=== PATIENT | male | born 1985 | race Caucasian/White ===

== ENCOUNTER → 2020-04-22 | Emergency (ER) | payer OTHER ==
[~2020-04-22] MED LIST: GASTROGRAFIN SOLUTION 30ML (Q9963) As Ordered ONE; GASTROGRAFIN SOLUTION 30ML (Q9963) ONE; HALOPERIDOL 5MG/ML VIAL (J1630 PER 1) As Ordered ONE; HALOPERIDOL 5MG/ML VIAL (J1630 PER 1) ONE; ISOVUE-370 76% 100ML VIAL As Ordered ONE; MORPHINE 4 MG/ML 1ML VIAL/SYRINGE (J2270) As Ordered ONE; MORPHINE 4 MG/ML 1ML VIAL/SYRINGE (J2270) ONE; ONDANSETRON 4MG/2ML VIAL As Ordered ONE; ONDANSETRON 4MG/2ML VIAL ONE
[2020-05-24 11:15] LABS: PROTHROMBIN TIME 13.4 SECONDS (11.8-14.0)
[2020-05-24 15:37] LABS: BASO % 0.2 % (0.0-1.0); EOS # 0.2 10^3/uL (0.0-0.5); EOS % 3.2 % (0.0-3.0); HEMATOCRIT 39.1 % (42.0-52.0); HEMOGLOBIN 12.7 g/dl (13.5-17.5); LYMPH # 1.8 10^3/uL (1.5-5.0); LYMPH % 30.9 % (24.0-44.0); MEAN CORPUSCULAR HEMOGLOBIN 28.4 pg (27.0-33.0); MEAN CORPUSCULAR HGB CONC 32.5 g/dl (32.0-36.5); MEAN CORPUSCULAR VOLUME 87.5 fl (80.0-96.0); MONO # 0.4 10^3/uL (0.0-0.8); MONO % 7.6 % (0.0-5.0); NEUTROPHILS # 3.3 10^3/uL (1.5-8.5); NEUTROPHILS % 57.6 % (36.0-66.0); PLATELET COUNT, AUTOMATED 234 10^3/uL (150-450); RED BLOOD COUNT 4.47 10^6/uL (4.30-6.10); WHITE BLOOD COUNT 5.7 10^3/uL (4.0-10.0)
[2020-06-06 11:09] LABS: ALBUMIN 2.8 GM/DL (3.2-5.2); ALT/SGPT 25 U/L (12-78); BILIRUBIN,DIRECT < 0.1 MG/DL (0.0-0.2); BILIRUBIN,TOTAL 0.3 MG/DL (0.2-1.0); BLOOD UREA NITROGEN 7 MG/DL (7-18); CALCIUM LEVEL 8.5 MG/DL (8.5-10.1); CARBON DIOXIDE LEVEL 24 MEQ/L (21-32); CHLORIDE LEVEL 113 MEQ/L (98-107); CREATININE FOR GFR 0.86 MG/DL (0.70-1.30); GLOMERULAR FILTRATION RATE > 60.0 (>60); GLUCOSE, FASTING 79 MG/DL (70-100); MAGNESIUM LEVEL 2.1 MG/DL (1.8-2.4); POTASSIUM SERUM 3.6 MEQ/L (3.5-5.1); SODIUM LEVEL 143 MEQ/L (136-145); TOTAL PROTEIN 6.4 GM/DL (6.4-8.2)
[2020-07-02 07:25] LABS: HCG, SERUM QUALITATIVE NEGATIVE
== END | disposition home or self-care (01) ==
LOC: M ED 17:00
DX: R10.32 Left lower quadrant pain (principal); K44.9 Diaphragmatic hernia without obstruction or gangrene; K21.9 Gastro-esophageal reflux disease without esophagitis; R53.82 Chronic fatigue, unspecified; Z88.0 Allergy status to penicillin; Z88.1 Allergy status to other antibiotic agents; Z88.5 Allergy status to narcotic agent; Z79.899 Other long term (current) drug therapy
CPT/HCPCS: 74177; 80048; 80076; 83605; 83735; 84703; 85025; 85610; 85730; 86850; 86900; 86901; 87040; 96361; 96374; 96375; 99283; J1630; J2270; J2405; Q9963; Q9967

== ENCOUNTER → 2023-10-17 | Outpatient (REF) ==
[2023-10-17 12:28] LABS: ESTRADIOL 2534.8 PG/ML (<39.8)
[2023-10-17 12:48] LABS: PROGESTERONE 87.77 NG/ML (0.28-1.22)
== END ==
LOC: M LAB LCGH 11:45
DX: Z00.00 Encounter for general adult medical examination without abnormal findings (principal)

== ENCOUNTER 2024-05-18 16:28 | Inpatient (IN) | payer OTHER ==
[~2024-05-18] VITALS: Ht 162.6 cm; Wt 90.0 kg
[2024-05-18] VITALS (11 sets, daily range): BP systolic 107–139; BP diastolic 53–74
[2024-05-18 16:56] LABS: HEMATOCRIT 29.4 % (36.0-47.0); HEMOGLOBIN 8.9 g/dl (12.0-15.5); MEAN CORPUSCULAR HEMOGLOBIN 21.8 pg (27.0-33.0); MEAN CORPUSCULAR HGB CONC 30.3 g/dl (32.0-36.5); MEAN CORPUSCULAR VOLUME 72.1 fl (80.0-96.0); PLATELET COUNT, AUTOMATED 311 10^3/uL (150-450); RED BLOOD COUNT 4.08 10^6/uL (4.00-5.40); WHITE BLOOD COUNT 10.2 10^3/uL (4.0-10.0)
[2024-05-18] MEDS ORDERED: PEDI18TA PO (16:56)
[2024-05-18] MEDS ORDERED: FAMO20TA PO (16:56)
[2024-05-18] MEDS ORDERED: PANT20TA6 PO (16:56)
[2024-05-18] MEDS ORDERED: ADDE25CA PO (16:56)
[2024-05-18] MEDS ORDERED: ADDE20CA3 PO (16:56)
[2024-05-18] MEDS ORDERED: HOME MED LIST COMPLETE! XX SCH (17:00)
[2024-05-18] MEDS: BETAMETHASONE SOLUSPAN 6MG/ML 5ML VIAL IM SCH (17:07)
[2024-05-18] MEDS: PANTOPRAZOLE 40MG TAB (PROTONIX) PO SCH (21:00)
[2024-05-18] MEDS: MAG Sulf (L&D) 4 GM/100 ML 4 GM in IV 1 EA IV ONE (22:50)
[2024-05-18] MEDS: MAG Sulf (OBGYN) 20GM/500ML 20,000 MG in IV 1 EA IV SCH (23:26)
[2024-05-18 23:51] LABS: INR 1.05; PARTIAL THROMBOPLASTIN TIME 22.9 SECONDS (24.8-34.2); PROTHROMBIN TIME 13.4 SECONDS (12.5-14.5)
[2024-05-19] VITALS (59 sets, daily range): BP systolic 79–134; BP diastolic 41–75; TEMP 96.7–97.8; O2SAT 97–100
[2024-05-19] MEDS: MORPHINE 4 MG/ML 1ML VIAL IV ONE (00:08)
[2024-05-19] MEDS: PROMETHAZINE 25MG/ML 1ML VIAL IV ONE (00:09)
[2024-05-19] MEDS: LR 1,000 ML IV SCH (01:16)
[2024-05-19 06:38] LABS: BASO % 0.1 % (0.0-1.0); HEMATOCRIT 26.3 % (36.0-47.0); HEMOGLOBIN 7.8 g/dl (12.0-15.5); LYMPH # 1.1 10^3/uL (1.5-5.0); LYMPH % 9.2 % (24.0-44.0); MEAN CORPUSCULAR HEMOGLOBIN 21.4 pg (27.0-33.0); MEAN CORPUSCULAR HGB CONC 29.7 g/dl (32.0-36.5); MEAN CORPUSCULAR VOLUME 72.3 fl (80.0-96.0); MONO # 0.5 10^3/uL (0.0-0.8); NEUTROPHILS # 9.9 10^3/uL (1.5-8.5); NEUTROPHILS % 85.3 % (36.0-66.0); PLATELET COUNT, AUTOMATED 288 10^3/uL (150-450); RED BLOOD COUNT 3.64 10^6/uL (4.00-5.40); WHITE BLOOD COUNT 11.6 10^3/uL (4.0-10.0)
[2024-05-19] MEDS: FAMOTIDINE 20 MG TAB PO SCH (08:53)
[2024-05-19] MEDS ORDERED: ONDANSETRON 4MG 2ML VIAL IV PRN (09:40)
[2024-05-19] MEDS: MORPHINE 10 MG/ML 1ML VIAL SC ONE (17:01)
[2024-05-20] VITALS (37 sets, daily range): BP systolic 92–130; BP diastolic 50–63
[2024-05-20 00:43] LABS: HEMOGLOBIN 8.2 g/dl (12.0-15.5); MEAN CORPUSCULAR HEMOGLOBIN 22.6 pg (27.0-33.0); MEAN CORPUSCULAR HGB CONC 30.4 g/dl (32.0-36.5); MEAN CORPUSCULAR VOLUME 74.4 fl (80.0-96.0); PLATELET COUNT, AUTOMATED 242 10^3/uL (150-450); RED BLOOD COUNT 3.63 10^6/uL (4.00-5.40); WHITE BLOOD COUNT 11.2 10^3/uL (4.0-10.0)
[2024-05-20 06:42] LABS: HEMATOCRIT 26.7 % (36.0-47.0); HEMOGLOBIN 8.3 g/dl (12.0-15.5); MEAN CORPUSCULAR HEMOGLOBIN 23.3 pg (27.0-33.0); MEAN CORPUSCULAR HGB CONC 31.1 g/dl (32.0-36.5); PLATELET COUNT, AUTOMATED 252 10^3/uL (150-450); RED BLOOD COUNT 3.56 10^6/uL (4.00-5.40)
[2024-05-20] MEDS: FUROSEMIDE 20MG/2ML VIAL IV ONE ×2 (08:25→15:20)
[2024-05-21] VITALS (8 sets, daily range): BP systolic 107–125; BP diastolic 55–68
[2024-05-21 10:45] LABS: HEMATOCRIT 28.1 % (36.0-47.0); HEMOGLOBIN 8.6 g/dl (12.0-15.5); MEAN CORPUSCULAR HEMOGLOBIN 23.2 pg (27.0-33.0); MEAN CORPUSCULAR HGB CONC 30.6 g/dl (32.0-36.5); MEAN CORPUSCULAR VOLUME 75.7 fl (80.0-96.0); PLATELET COUNT, AUTOMATED 245 10^3/uL (150-450); RED BLOOD COUNT 3.71 10^6/uL (4.00-5.40); WHITE BLOOD COUNT 9.9 10^3/uL (4.0-10.0)
[2024-05-21] MEDS: ACETAMINOPHEN 500 MG TAB PO ONE (13:57)
[2024-05-22 00:04] VITALS: BP 119/58
[2024-05-22 06:06] VITALS: BP 116/61
[2024-05-22 09:01] LABS: BASO % 0.4 % (0.0-1.0); EOS # 0.2 10^3/uL (0.0-0.5); HEMATOCRIT 33.9 % (36.0-47.0); HEMOGLOBIN 9.5 g/dl (12.0-15.5); LYMPH # 1.2 10^3/uL (1.5-5.0); LYMPH % 13.9 % (24.0-44.0); MEAN CORPUSCULAR HEMOGLOBIN 22.9 pg (27.0-33.0); MEAN CORPUSCULAR VOLUME 81.9 fl (80.0-96.0); MONO # 0.6 10^3/uL (0.0-0.8); MONO % 6.8 % (2.0-8.0); NEUTROPHILS # 6.2 10^3/uL (1.5-8.5); PLATELET COUNT, AUTOMATED 221 10^3/uL (150-450); RED BLOOD COUNT 4.14 10^6/uL (4.00-5.40); WHITE BLOOD COUNT 8.5 10^3/uL (4.0-10.0)
[2024-05-22] MEDS: ANUSOL HC CREAM 30GM TOP PRN (15:59)
[2024-05-22 16:00] VITALS: BP 124/70; O2SAT 96
[2024-05-22 18:00] VITALS: BP 130/71; O2SAT 98
[2024-05-22 22:00] VITALS: BP 114/57; O2SAT 95
[2024-05-23 02:00] VITALS: BP 110/59; O2SAT 95
[2024-05-23 06:00] VITALS: BP 102/54; O2SAT 97
[2024-05-23 11:04] VITALS: BP 123/67; O2SAT 96
[2024-05-23 14:00] VITALS: BP 138/68; O2SAT 97
[2024-05-23 18:21] VITALS: BP 119/66
[2024-05-24 02:33] VITALS: BP 128/61
[2024-05-24 10:05] VITALS: BP 121/66
[2024-05-24 18:00] VITALS: BP 133/66; O2SAT 98
[2024-05-25 02:00] VITALS: BP 119/61; O2SAT 98
[2024-05-25 15:00] VITALS: BP 132/74; O2SAT 98
[2024-05-25 22:45] VITALS: BP 112/58; O2SAT 96
[2024-05-26 06:08] VITALS: BP 110/62; O2SAT 98
[2024-05-26 14:29] VITALS: BP 125/73; O2SAT 98
[2024-05-26 18:00] VITALS: BP 118/71; O2SAT 98
[2024-05-27] VITALS: BP 116/67; O2SAT 96
[2024-05-27 06:00] VITALS: BP 120/63; O2SAT 96
[2024-05-27 14:00] VITALS: BP 118/76; O2SAT 97
[2024-05-27 22:27] VITALS: BP 120/76; O2SAT 99
[2024-05-28 05:55] VITALS: BP 108/60; O2SAT 98
[2024-05-28 14:00] VITALS: BP 113/67; O2SAT 97
[2024-05-28 22:00] VITALS: BP 108/56; O2SAT 98
[2024-05-29 06:25] VITALS: BP 107/65; O2SAT 97
[2024-05-29 18:00] VITALS: BP 119/70; O2SAT 98
[2024-05-30 02:41] VITALS: BP 119/55; O2SAT 98
[2024-05-30 10:15] VITALS: BP 105/53; O2SAT 97
[2024-05-30] MEDS: PANTOPRAZOLE 40MG TAB (PROTONIX) PO SCH (19:30)
[2024-05-31 02:00] VITALS: BP 106/55; O2SAT 99
[2024-05-31 10:00] VITALS: BP 121/66; O2SAT 97
[2024-05-31] MEDS: AMPHETAMINE/DEXTROAMPHETAMINE 5 MG *ER* CAPSULE (ADDERALL XR) PO SCH (10:23)
[2024-05-31 18:00] VITALS: BP 99/65; O2SAT 98
[2024-06-01 02:00] VITALS: BP 101/59; O2SAT 98
[2024-06-01 08:58] VITALS: BP 101/59; TEMP 97.1; O2SAT 98
[2024-06-01 10:00] VITALS: BP 114/59; O2SAT 100
[2024-06-01 18:00] VITALS: BP 115/58; O2SAT 99
[2024-06-02 02:00] VITALS: BP 103/55; O2SAT 100
[2024-06-02 18:00] VITALS: BP 110/56; O2SAT 98
[2024-06-03 02:00] VITALS: BP 92/54; O2SAT 98
[2024-06-03 10:17] LABS: HEMATOCRIT 32.2 % (36.0-47.0); HEMOGLOBIN 9.9 g/dl (12.0-15.5); MEAN CORPUSCULAR HEMOGLOBIN 22.9 pg (27.0-33.0); MEAN CORPUSCULAR HGB CONC 30.7 g/dl (32.0-36.5); MEAN CORPUSCULAR VOLUME 74.5 fl (80.0-96.0); PLATELET COUNT, AUTOMATED 349 10^3/uL (150-450); RED BLOOD COUNT 4.32 10^6/uL (4.00-5.40); WHITE BLOOD COUNT 9.6 10^3/uL (4.0-10.0)
[2024-06-03 10:35] VITALS: BP 117/63; O2SAT 100
[2024-06-03 13:58] VITALS: BP 114/75; O2SAT 98
[2024-06-03 18:00] VITALS: BP 130/68; O2SAT 96
[2024-06-03 22:00] VITALS: BP 109/59; O2SAT 97
[2024-06-03] MEDS: LACTATED RINGER'S 1000 ML IV ONE (23:28)
[2024-06-04] VITALS (10 sets, daily range): BP systolic 101–123; BP diastolic 53–67; TEMP 96.6; O2SAT 95–100
[2024-06-04] MEDS ORDERED: METHYLERGONOVINE MALEATE 0.2MG/ML 1ML VIAL IM PRN (04:25)
[2024-06-04] MEDS ORDERED: OXYTOCIN INJ 10UNITS/ML 1ML VIAL IM PRN (04:25)
[2024-06-04] MEDS ORDERED: TRANEXAMIC ACID INJection 1,000 MG in NS 100 ML IV PRN (04:25)
[2024-06-04] MEDS ORDERED: OXYTOCIN DRIP 30 UNITS in IV 1 EA IV PRN (04:25)
[2024-06-04] MEDS ORDERED: CARBOPROST TROMETHAMINE 250 MCG/ML AMP IM PRN (04:25)
[2024-06-04] MEDS: LACTATED RINGER'S 1000 ML IV STA (05:58)
[2024-06-04] MEDS: ceFAZolin SOD 2 GM in IV 1 EA IV ONE (07:36)
[2024-06-04] MEDS: BICITRA 30ML SOLN UDC PO ONE (07:36)
[2024-06-04] MEDS: LR 1,000 ML IV SCH (07:36)
[2024-06-04] MEDS ORDERED: GENTAMICIN 400 MG in IV FLUID PLACE HOLDER 1 EA IV ONE (08:05)
[2024-06-04] MEDS: CLINDAMYCIN 900 MG in IV 1 EA IV ONE (09:19)
[2024-06-04] MEDS: GENTAMICIN 400 MG in D5W 50 ML IV ONE (09:44)
[2024-06-04] MEDS ORDERED: OXYTOCIN 30UNITS IN 0.9% NaCl 500ML IV BAG As Ordered ONE (10:06)
[2024-06-04] MEDS ORDERED: TRANEXAMIC ACID 100 MG/ML 10ML VIAL As Ordered ONE (10:06)
[2024-06-04] MEDS ORDERED: MORPHINE PRES-FREE INJ 10 MG/10 ML VIAL As Ordered ONE (10:06)
[2024-06-04] MEDS ORDERED: ONDANSETRON 4MG 2ML VIAL As Ordered ONE (10:06)
[2024-06-04] MEDS ORDERED: KETOROLAC 60MG 2ML VIAL As Ordered ONE (10:06)
[2024-06-04] MEDS ORDERED: ACETAMINOPHEN 1000MG 100ML IV BAG As Ordered ONE (10:06)
[2024-06-04] MEDS ORDERED: ePHEDrine SULFATE 25 MG/5 ML(5MG/ML) SYRINGE As Ordered ONE (10:31)
[2024-06-04] MEDS ORDERED: PHENYLephrine 500MCG 5ML (100MCG/ML) SYRINGE As Ordered ONE (10:31)
[2024-06-04] MEDS ORDERED: fentaNYL 100 MCG/2 ML INJECTION As Ordered ONE (10:43)
[2024-06-04 10:44] LABS: CORD GAS ABE V 0.3; CORD GAS HCO3 V 26.8 MMOL/L; CORD GAS O2 SAT V 18.1 %; CORD GAS PCO2 V 50.6 mmHg; CORD GAS PH V 7.342 UNITS; CORD GAS PO2 V 11.1 mmHg; CORD GAS SBC V 22.8 MMOL/L; CORD GAS TCO2 V 28.4 MMOL/L
[2024-06-04 10:46] LABS: CORD GAS ABE A -2.9; CORD GAS HCO3 A 21.7 MMOL/L; CORD GAS PCO2 A 37.2 mmHg; CORD GAS PH A 7.383 UNITS; CORD GAS SBC A 21.7 MMOL/L; CORD GAS TCO2 A 22.8 MMOL/L
[2024-06-04] MEDS ORDERED: RHO(D) IMMUNE GLOBULIN/MALTOSE 500MCG(2500IU)/2.2ML VIAL (WINRHO) IM SCH (11:15)
[2024-06-04] MEDS ORDERED: MOM 30ML SUSPENSION UDC PO PRN (11:15)
[2024-06-04] MEDS ORDERED: CALCIUM CARBONATE 500 MG CHEW U/D PO PRN (11:15)
[2024-06-04] MEDS: OXYTOCIN DRIP 30 UNITS in IV 1 EA IV SCH (11:54)
[2024-06-04] MEDS ORDERED: **NOTE PATIENT COMMENT** MISC XX SCH (11:55)
[2024-06-04] MEDS ORDERED: NALOXONE INJ 0.4MG/1ML VIAL IV PRN ×2 (11:55)
[2024-06-04] MEDS ORDERED: oxyCODONE 5MG TAB PO PRN (11:55)
[2024-06-04] MEDS ORDERED: METOCLOPRAMIDE INJ 10MG/2ML VIAL IV PRN (11:55)
[2024-06-04] MEDS ORDERED: ONDANSETRON 4MG 2ML VIAL IV PRN (11:55)
[2024-06-04] MEDS: fentaNYL 100 MCG/2 ML INJECTION IV PRN (12:11)
[2024-06-04] MEDS: FERROUS SULFATE 325MG TAB PO SCH (13:24)
[2024-06-04] MEDS: PRENATAL VITAMINS CHEWABLE TABLET PO SCH (13:24)
[2024-06-04] MEDS: diphenhydrAMINE 50MG/ML VIAL IV PRN (15:53)
[2024-06-04] MEDS: SLF 3 ML SYR IV SCH (15:53)
[2024-06-04] MEDS: KETOROLAC 30 MG/ML 1ML VIAL IV SCH (17:20)
[2024-06-04 19:53] LABS: HEPATITIS C VIRUS ABY INDEX 0.02 INDEX (<0.8)
[2024-06-04] MEDS: DOCUSATE SODIUM 100MG CAPSULE PO SCH (21:00)
[2024-06-04] MEDS ORDERED: MAGN100T PO (21:24)
[2024-06-04] MEDS ORDERED: [UNRECOGNIZED DRUG - OTHER] PO PRN (21:38)
[2024-06-05 02:00] VITALS: BP 118/55; O2SAT 96
[2024-06-05] MEDS: oxyCODONE 5MG TAB PO PRN (03:14)
[2024-06-05 06:00] VITALS: BP 105/55; O2SAT 97
[2024-06-05 07:25] LABS: HEMATOCRIT 27.8 % (36.0-47.0); HEMOGLOBIN 8.5 g/dl (12.0-15.5); MEAN CORPUSCULAR HEMOGLOBIN 22.9 pg (27.0-33.0); MEAN CORPUSCULAR HGB CONC 30.6 g/dl (32.0-36.5); MEAN CORPUSCULAR VOLUME 74.9 fl (80.0-96.0); PLATELET COUNT, AUTOMATED 281 10^3/uL (150-450); RED BLOOD COUNT 3.71 10^6/uL (4.00-5.40); WHITE BLOOD COUNT 10.5 10^3/uL (4.0-10.0)
[2024-06-05] MEDS: SIMETHICONE 80MG CHEW TAB PO PRN (10:49)
[2024-06-05] MEDS: ACETAMINOPHEN 500 MG TAB PO PRN (10:49)
[2024-06-05] MEDS: IBUPROFEN 100MG 5ML SUSP UDC DYE FREE PO SCH (13:00)
[2024-06-05] MEDS ORDERED: IBUPROFEN 800 MG TAB PO SCH (13:00)
[2024-06-05 14:00] VITALS: BP 100/54; O2SAT 98
[2024-06-05] MEDS: ACETAMINOPHEN 325MG/10.15ML UDC PO PRN (17:50)
[2024-06-05 18:00] VITALS: BP 113/56; O2SAT 97
[2024-06-05] MEDS ORDERED: ENTER DRUG NAME HERE (PATIENT'S OWN MED) PO SCH (21:00)
[2024-06-05 21:55] VITALS: BP 124/63; O2SAT 97
[2024-06-06 01:52] VITALS: BP 117/65; O2SAT 97
[2024-06-06 05:33] VITALS: BP 123/77; O2SAT 97
[2024-06-06] MEDS ORDERED: MEASLES,MUMPS,RUBELLA VACCINE INJ (MMR-II) SC.IMMUN ONE (09:00)
[2024-06-06 12:30] VITALS: BP 128/69; O2SAT 98
[2024-06-06] MEDS ORDERED: IBUP-1824 PO (13:09)
== END 2024-06-06 14:00 | disposition home or self-care (01) | DRG 540 ==
LOC: M LDO 16:28 → EDSEX 16:28 → M LDI 05-19 08:25 → OBSVTOIN 05-21 06:00 → M OBS 05-22 15:30 → M LDI 05-23 15:04 → M OBS 05-24 12:55 → M LDI 06-04 05:42 → M OBS 06-04 12:55
PROVIDERS: ADMIT Obstetrics & Gynecology; ATTEND Obstetrics & Gynecology
PROC: 30233N1 Transfusion of Nonautologous Red Blood Cells into Peripheral Vein, Percutaneous Approach (ICD-10-PCS; 2024-05-18)
PROC: 10D00Z1 Extraction of Products of Conception, Low, Open Approach (ICD-10-PCS; principal; 2024-06-04 09:30)
DX: O44.13 Complete placenta previa with hemorrhage, third trimester (principal); Z3A.33 33 weeks gestation of pregnancy; O99.02 Anemia complicating childbirth; D64.9 Anemia, unspecified; Z37.0 Single live birth; Z88.0 Allergy status to penicillin; Z88.1 Allergy status to other antibiotic agents; Z88.5 Allergy status to narcotic agent; Z88.6 Allergy status to analgesic agent; Z79.899 Other long term (current) drug therapy

== ENCOUNTER 2025-04-27 04:35 | Inpatient (IN) | payer MEDICAID, OTHER ==
[~2025-04-27] VITALS: Ht 162.6 cm; Wt 78.4 kg
[~2025-04-27 04:35] MED LIST changes: +ADDE20CA3 PO; +ADDE25CA PO; +FAMO20TA PO; -GASTROGRAFIN SOLUTION 30ML (Q9963) As Ordered ONE; -GASTROGRAFIN SOLUTION 30ML (Q9963) ONE; -HALOPERIDOL 5MG/ML VIAL (J1630 PER 1) As Ordered ONE; -HALOPERIDOL 5MG/ML VIAL (J1630 PER 1) ONE; +IBUP-1824 PO; -ISOVUE-370 76% 100ML VIAL As Ordered ONE; +MAGN100T PO; -MORPHINE 4 MG/ML 1ML VIAL/SYRINGE (J2270) As Ordered ONE; -MORPHINE 4 MG/ML 1ML VIAL/SYRINGE (J2270) ONE; -ONDANSETRON 4MG/2ML VIAL As Ordered ONE; -ONDANSETRON 4MG/2ML VIAL ONE; +PANT20TA6 PO; +PEDI18TA PO
[2025-04-27 05:36] LABS: BASO # 0.0 10^3/uL (0.0-0.2); BASO % 0.2 % (0.0-1.0); EOS # 0.1 10^3/uL (0.0-0.5); EOS % 0.6 % (0.0-3.0); LYMPH # 0.8 10^3/uL (1.5-5.0); LYMPH % 6.0 % (24.0-44.0); MONO # 0.4 10^3/uL (0.0-0.8); MONO % 2.9 % (2.0-8.0); NEUTROPHILS # 11.8 10^3/uL (1.5-8.5); NEUTROPHILS % 90.0 % (36.0-66.0); PLATELET COUNT, AUTOMATED 361 10^3/uL (150-450)
[2025-04-27 05:40] LABS: VENOUS BASE EXCESS -1.3 (-2.0-2.0); VENOUS HCO3 21.4 MMOL/L (23.0-27.0); VENOUS O2 SATURATION 97.9 % (60.0-80.0); VENOUS PARTIAL PRESSURE CO2 29.6 mmHg (38.0-50.0); VENOUS PARTIAL PRESSURE O2 99.3 mmHg (30.0-50.0); VENOUS PH 7.477 UNITS (7.330-7.430); VENOUS STANDARD HCO3 23.4 MMOL/L; VENOUS TOTAL CO2 22.3 MMOL/L (24.0-28.0)
[2025-04-27] MEDS: NS (Normal Saline) 0.9% 2,290 ML in IV 1 EA IV ONE (05:41)
[2025-04-27 05:59] LABS: INR 1.01
[2025-04-27 06:03] LABS: C REACTIVE PROTEIN QUANTITATIV 1.87 MG/DL (<1.0)
[2025-04-27 06:04] LABS: ALT/SGPT 17 U/L (7.0-40); AST/SGOT 21 U/L (<34); CALCIUM LEVEL 9.0 MG/DL (8.5-10.1); CARBON DIOXIDE LEVEL 23 MMOL/L (20-31); CHLORIDE LEVEL 103 MMOL/L (98-107); CREATININE FOR GFR 0.73 MG/DL (0.55-1.30); GLOMERULAR FILTRATION RATE > 90.0 (>60); POTASSIUM SERUM 3.9 MMOL/L (3.5-5.1); SODIUM LEVEL 138 MMOL/L (136-145)
[2025-04-27] MEDS: KETOROLAC 30 MG/ML 1 ML VIAL IV ONE (06:29)
[2025-04-27] MEDS ORDERED: ISOVUE-370 76% 100 ML VIAL As Ordered ONE (07:38)
[2025-04-27 08:14] LABS: KETONE, URINE AUTO RFX TRACE mg/dL (NEGATIVE); LEUKOCYTE ESTERASE UR AUTO RFX NEGATIVE (NEGATIVE); NITRITE, URINE AUTO RFX NEGATIVE (NEGATIVE); RBC, URINE AUTO RFX 0 /HPF (0-3); SQUAM EPITHELIAL CELL UR AURFX 2 /HPF (0-6); WBC, URINE AUTO RFX 0 /HPF (0-3)
[2025-04-27 08:27] LABS: HIV 1&2 SCREEN NEGATIVE (NEGATIVE)
[2025-04-27] MEDS ORDERED: FLUC100T3 PO (08:53)
[2025-04-27] MEDS ORDERED: DOXY100C3 PO (08:53)
[2025-04-27] MEDS ORDERED: HOME MED LIST COMPLETE! XX SCH (08:55)
[2025-04-27] MEDS: NS (Normal Saline) 0.9% 1,000 ML IV SCH ×2 (10:03→11:14)
[2025-04-27] MEDS: ACETAMINOPHEN *IV* 1,000 MG in IV 1 EA IV ONE (10:04)
[2025-04-27] MEDS ORDERED: MAGNESIUM CITRATE 300 ML BTL PO PRN (10:15)
[2025-04-27] MEDS ORDERED: ACETAMINOPHEN 325 MG TAB PO PRN (10:15)
[2025-04-27] MEDS: DOXYCYCLINE HYCLATE 100 MG TABLET PO SCH (11:18)
[2025-04-27] MEDS: cefTRIAXone SOD 1 GM in DEXTROSE 5% (D5W) ADV/MINI-BAG 50 ML IV SCH (12:12)
[2025-04-27] MEDS: DEXTROAMPHETAMINE/AMPHETAMINE 5 MG *ER* CAPSULE PO SCH ×2 (12:13→16:00)
[2025-04-27] MEDS ORDERED: ALBUTEROL 90 MCG/ACT 8 GM HFA INHALER INH PRN (13:05)
[2025-04-27 14:05] VITALS: BP 106/64; TEMP 97.4; O2SAT 95
[2025-04-27 19:43] VITALS: BP 111/64; TEMP 98.5; O2SAT 96
[2025-04-27] MEDS: FAMOTIDINE 20 MG TAB PO SCH (20:08)
[2025-04-27] MEDS: BENZONATATE 100 MG CAPSULE PO PRN (20:13)
[2025-04-27] MEDS ORDERED: FLUCONAZOLE 100 MG TAB PO SCH (21:00)
[2025-04-27] MEDS ORDERED: IBUPROFEN 400 MG TAB PO PRN (21:35)
[2025-04-28] MEDS: PANTOPRAZOLE 40MG TAB PO SCH (00:30)
[2025-04-28 00:34] VITALS: TEMP 98.4
[2025-04-28 04:06] VITALS: BP 109/62; TEMP 97.9; O2SAT 96
[2025-04-28 06:24] LABS: PLATELET COUNT, AUTOMATED 370 10^3/uL (150-450)
[2025-04-28 06:52] LABS: ALT/SGPT 13 U/L (7.0-40); AST/SGOT 19 U/L (<34); CALCIUM LEVEL 8.2 MG/DL (8.5-10.1); CARBON DIOXIDE LEVEL 22 MMOL/L (20-31); CHLORIDE LEVEL 111 MMOL/L (98-107); CREATININE FOR GFR 0.57 MG/DL (0.55-1.30); GLOMERULAR FILTRATION RATE > 90.0 (>60); POTASSIUM SERUM 4.4 MMOL/L (3.5-5.1); SODIUM LEVEL 141 MMOL/L (136-145)
[2025-04-28] MEDS ORDERED: PANTOPRAZOLE 20 MG TAB PO SCH (09:00)
[2025-04-28] MEDS: ENOXAPARIN 40 MG/0.4 ML SYRINGE (J1650 PER 10MG) SC SCH (10:23)
[2025-04-28 12:00] VITALS: BP 101/68; TEMP 98.3; O2SAT 98
[2025-04-28] MEDS: DEXTROAMPHETAMINE/AMPHETAMINE 5 MG *ER* CAPSULE PO SCH (13:57)
[2025-04-28 19:44] VITALS: BP 118/74; TEMP 98.6; O2SAT 100
[2025-04-28 20:00] VITALS: BP 118/74; TEMP 98.6; O2SAT 100
[2025-04-29 04:14] VITALS: BP 112/71; TEMP 97.6; O2SAT 98
[2025-04-29 07:01] LABS: PLATELET COUNT, AUTOMATED 349 10^3/uL (150-450)
[2025-04-29 07:34] LABS: ALT/SGPT 13 U/L (7.0-40); AST/SGOT 16 U/L (<34); CALCIUM LEVEL 8.1 MG/DL (8.5-10.1); CARBON DIOXIDE LEVEL 22 MMOL/L (20-31); CHLORIDE LEVEL 109 MMOL/L (98-107); CREATININE FOR GFR 0.60 MG/DL (0.55-1.30); GLOMERULAR FILTRATION RATE > 90.0 (>60); POTASSIUM SERUM 4.2 MMOL/L (3.5-5.1); SODIUM LEVEL 140 MMOL/L (136-145)
[2025-04-29] MEDS: DEXTROAMPHETAMINE/AMPHETAMINE 5 MG *ER* CAPSULE PO SCH (09:32)
[2025-04-29] MEDS ORDERED: VENTAER INH (10:41)
[2025-04-29] MEDS ORDERED: BENZ200C70 PO (10:41)
[2025-04-29] MEDS ORDERED: MUCI600T31 PO (11:31)
[2025-04-30 18:02] LABS: CMV QUANT DNA PCR (PLASMA) Not Detected; log10 CMV QN DNA P1 Not Detected log IU/mL
[2025-04-30 19:06] LABS: EBV PCR QUANTITATIVE Not Detected
[2025-04-30 19:22] LABS: LYME TOTAL ANTIBODY CIA <= 0.90 Index (<=0.90)
[2025-05-01 04:37] LABS: CRYTPOCOCCUS SOURCE Serum
== END 2025-04-29 12:26 | disposition home or self-care (01) | DRG 722 ==
LOC: M ED 04:35 → M ED INP 10:13 → M MSPAV 14:03
PROVIDERS: ADMIT Internal Medicine; ATTEND Internal Medicine
DX: R50.9 Fever, unspecified (principal); R65.10 Systemic inflammatory response syndrome (SIRS) of non-infectious origin without acute organ dysfunction; G90.A Postural orthostatic tachycardia syndrome [POTS]; M50.10 Cervical disc disorder with radiculopathy, unspecified cervical region; R42 Dizziness and giddiness; M79.7 Fibromyalgia; F90.9 Attention-deficit hyperactivity disorder, unspecified type; R53.81 Other malaise; R91.8 Other nonspecific abnormal finding of lung field; K21.9 Gastro-esophageal reflux disease without esophagitis; K22.70 Barrett's esophagus without dysplasia; Z79.899 Other long term (current) drug therapy; Z88.0 Allergy status to penicillin; Z88.1 Allergy status to other antibiotic agents; Z88.5 Allergy status to narcotic agent; Z88.6 Allergy status to analgesic agent

== ENCOUNTER → 2025-06-17 | Outpatient (CLI) | payer OTHER ==
[~2025-06-17] MED LIST changes: +BENZ200C70 PO; +DOXY100C3 PO; +FLUC100T3 PO; +MUCI600T31 PO; +VENTAER INH
== END ==
LOC: M PLAIMG 12:41
PROVIDERS: ATTEND Internal Medicine Critical Care Medicine
DX: J67.9 Hypersensitivity pneumonitis due to unspecified organic dust (principal); R91.8 Other nonspecific abnormal finding of lung field